=== PATIENT | female | born 1960 | race Caucasian/White ===

== ENCOUNTER 2019-08-19 12:01 | Inpatient (IN) | payer OTHER ==
[~2019-08-19] VITALS: Ht 157.5 cm; Wt 68.0 kg
[2019-09-08] MEDS ORDERED: FORTAMET500 MG PO (13:04)
[2019-09-08] MEDS ORDERED: NEURONTIN300 MG PO (13:06)
== END 2019-09-18 19:13 | DRG 470 ==
LOC: O/R 09-15 07:00 → RECOVERY 09-15 08:30 → SURG 09-15 14:36
PROVIDERS: ADMIT Orthopaedic Surgery
PROC: 0SR9039 Replacement of Right Hip Joint with Ceramic Synthetic Substitute, Cemented, Open Approach (ICD-10-PCS; principal; 2019-09-15 08:30)
DX: M16.11 Unilateral primary osteoarthritis, right hip (principal); D62 Acute posthemorrhagic anemia